=== PATIENT | female | born 1960 | race Caucasian/White ===

== ENCOUNTER 2022-10-23 14:19 | Outpatient (RCR) | payer MEDICARE, MEDICAID, SELFPAY | END 2023-01-01 16:00 | disposition home or self-care (01) | LOC: HO.WCC 14:19 | PROVIDERS: PCP Nurse Practitioner Family; Visit Provider Physician Assistant | DX: E11.621 Type 2 diabetes mellitus with foot ulcer (principal); L97.422 Non-pressure chronic ulcer of left heel and midfoot with fat layer exposed; L97.822 Non-pressure chronic ulcer of other part of left lower leg with fat layer exposed; E11.69 Type 2 diabetes mellitus with other specified complication; M86.472 Chronic osteomyelitis with draining sinus, left ankle and foot; E11.40 Type 2 diabetes mellitus with diabetic neuropathy, unspecified; Z72.0 Tobacco use; F20.9 Schizophrenia, unspecified | CPT/HCPCS: 11042; 11045; 87070; 87077; 87186; 87205 ==